=== PATIENT | male | born 1950 | race Caucasian/White ===

== ENCOUNTER 2016-06-28 15:43 | Inpatient (IN) ==
[2016-06-28] MEDS ORDERED: *HR* Ticagrelor 90 MG TABLET PO ONE (15:44)
[2016-06-28] MEDS ORDERED: *HR* Heparin 5,000 UNIT/ML VIAL IVP PRN ×2 (15:47)
[2016-06-28] MEDS ORDERED: *HR* Heparin 5,000 UNIT/ML VIAL IVP ONE (15:47)
[2016-06-28] MEDS ORDERED: *HR* Morphine 2 MG/ML SYRINGE IVP ONE (15:49)
--- NOTE | 2016-06-28 15:51 | Emergency Department Note ---
Disposition Clinical Impression: STEMI (ST elevation myocardial infarction) Disposition: Home, Self-Care Condition: Good General Adult HPI - General Chief complaint: ED Chest Pain Stated complaint: CP Time Seen by Provider: 06/28/16 15:44 Nursing Notes Reviewed: Yes Vital Signs Reviewed: Yes - Related Data Home Medications Medication Instructions Recorded Confirmed Amlodipine Besylate 10 mg PO DAILY 09/19/15 09/19/15 Ascorbic Acid [Vitamin C] 1,000 mg PO DAILY 09/19/15 09/19/15 Aspirin Enteric Coated [Aspirin EC] 81 mg PO DAILY 09/19/15 09/19/15 Cholecalciferol (D-3) [Vitamin D] 5,000 unit PO DAILY 09/19/15 09/19/15 Garlic [Daily Garlic Once-A-Day] 400 mg PO DAILY 09/19/15 09/19/15 GlipiZIDE [Glipizide] 10 mg PO DAILY 09/19/15 09/19/15 Lisinopril/Hydrochlorothiazide 1 tab PO DAILY 09/19/15 09/19/15 [Zestoretic 20-25 mg Tablet] Lovastatin 40 mg PO DAILY 09/19/15 09/19/15 Magnesium Oxide [Magnesium] 400 mg PO DAILY 09/19/15 09/19/15 Metformin HCl [Glucophage] 1,000 mg PO BID 09/19/15 09/19/15 Multivitamin [Multi-Day Vitamins] 1 tab PO DAILY 09/19/15 09/19/15 [place]-3/Dha/Epa/Fish Oil [Fish Oil 1,000 mg PO DAILY 09/19/15 09/19/15 1,000 mg Softgel] Potassium 99 mg PO DAILY 09/19/15 09/19/15 Allergies Allergy/AdvReac Type Severity Reaction Status Date / Time ibuprofen AdvReac See Verified 09/19/15 12:24 Comments Past Medical History - Past Medical History Medical history: Reports: cancer, diabetes, hyperlipidemia, hypertension, other Surgical history: Reports: other Psychiatric history: Reports: no psych history - Social History Smoking Status: Never smoker Alcohol use: Reports: recent Drug use: Reports: none Course Vital Signs Temperature 98.5 F 06/28/16 15:45 Pulse Rate 104 06/28/16 15:45 Respiratory Rate 22 06/28/16 15:45 Blood Pressure 142/87 06/28/16 15:45 O2 Sat by Pulse Oximetry 96 06/28/16 15:45 Temperature 98.5 F 06/28/16 15:45 Pulse Rate 104 06/28/16 15:45 Respiratory Rate 22 06/28/16 15:45 Blood Pressure 142/87 06/28/16 15:45 O2 Sat by Pulse Oximetry 96 06/28/16 15:45 Oxygen Delivery Oxygen Delivery Room Air Medical Decision Making - MDM Narrative Medical decision making narrative: I examined this patient and my medical decision-making was reviewed with the [employer]/PA/Advanced Practice Nurse/Resident Physician. I agree with the documented findings, disposition and treatment plan as described except to the extent set forth below. Patient started having chest pain about an hour to prior. Pain was going to her shoulder his arm. He was going to [place] [facility] and they diverted him to here. He did get 34 nitros and a baby aspirin for total 325 mg in the squad. Pain has declined down to about a 2. His initial pre- squad EKG does show a STEMI. There is pain is improving but still there repeat EKG shows a STEMI called him as a STEMI alert. Dr. Adkins he is accepting. As for heparin and Galien type. And patient's agreement will go to [employer] [facility]. 1600 hrs.: Patient's following medication well. He is a negative catheter lab. Waiting on Keflex arrival. His critical care time exceeds separately billed procedures is 20 minutes. - Lab Data Result diagrams: 06/28/16 15:47 Lab Results 06/28/16 Range/Units 15:47 WBC 8.8 (4.3-11.1) K/mcL RBC 4.30 (4.19-5.50) M/mcL Hgb 13.5 (12.9-16.9) g/dL Hct 40.2 (37.5-50.1) % MCV 93.5 (83.0-100.0) fL MCH 31.4 (28.0-33.3) pg MCHC 33.6 (31.6-35.5) g/dL RDW 13.8 (11.5-14.5) % Plt Count 254 (140-400) K/mcL MPV 9.9 (9.4-12.4) fL Immature Gran % 0.3 (0-4) % Seg Neutrophils % 66.6 % Lymphocytes % 22.1 % Monocytes % 7.5 % Eosinophils % 2.6 % Basophils % 0.9 % Neutrophils # 5.8 (1.6-8.9) K/mcL Lymphocytes # 1.9 (0.6-4.6) K/mcL Monocytes # 0.7 (0.0-1.3) K/mcL Eosinophils # 0.2 (0.0-0.6) K/mcL Basophils # 0.1 (0.0-0.2) K/mcL
--- NOTE | 2016-06-28 15:52 | Emergency Department Note ---
Disposition Clinical Impression: STEMI (ST elevation myocardial infarction) Qualifiers: Involved coronary artery: unspecified coronary artery Qualified Code(s): I21.3 - ST elevation (STEMI) myocardial infarction of unspecified site Disposition: Admitted As Inpatient Condition: Good Time of Disposition: 15:59 Chest Pain HPI - General Chief Complaint: ED Chest Pain Stated Complaint: CP Time Seen by Provider: 06/28/16 15:44 Source: patient, EMS Mode of arrival: EMS Limitations: no limitations Vital Signs Reviewed: Yes Nursing Notes Reviewed: Yes - History of Present Illness HPI Narrative: Patient is a 66-year-old male with past history of hypertension, hyperlipidemia , prediabetic. He presents today via EMS due to chest pain/STEMI. Patient was diverted from [place] [facility] to [facility]. EKG sent prior to arrival showing ST elevation in V1, V2, V3 with reciprocal changes. STEMI alert was called prior to patient presenting. He was given aspirin 325 mg and 4 nitroglycerin by EMS. Patient said the chest pain began about an hour prior to arrival, left-sided, radiation down his left arm, sweating, episode of nausea and vomiting 2. He denies any previous NM or stenting. He reviewed his initial pain 5 out of 10 and stated that it reduced to a 4 out of 10 after nitroglycerin. - Related Data Home Medications Medication Instructions Recorded Confirmed Amlodipine Besylate 10 mg PO DAILY 09/19/15 06/28/16 Ascorbic Acid [Vitamin C] 1,000 mg PO DAILY 09/19/15 06/28/16 Aspirin Enteric Coated [Aspirin EC] 81 mg PO DAILY 09/19/15 06/28/16 Cholecalciferol (D-3) [Vitamin D] 5,000 unit PO DAILY 09/19/15 06/28/16 Garlic [Daily Garlic Once-A-Day] 400 mg PO DAILY 09/19/15 06/28/16 GlipiZIDE [Glipizide] 10 mg PO DAILY 09/19/15 06/28/16 Lisinopril/Hydrochlorothiazide 1 tab PO DAILY 09/19/15 06/28/16 [Zestoretic 20-25 mg Tablet] Lovastatin 40 mg PO DAILY 09/19/15 06/28/16 Magnesium Oxide [Magnesium] 400 mg PO DAILY 09/19/15 06/28/16 Metformin HCl [Glucophage] 1,000 mg PO BID 09/19/15 06/28/16 Multivitamin [Multi-Day Vitamins] 1 tab PO DAILY 09/19/15 06/28/16 [place]-3/Dha/Epa/Fish Oil [Fish Oil 1,000 mg PO DAILY 09/19/15 06/28/16 1,000 mg Softgel] Potassium 99 mg PO DAILY 09/19/15 06/28/16 Allergies Allergy/AdvReac Type Severity Reaction Status Date / Time ibuprofen AdvReac See Verified 09/19/15 12:24 Comments All systems ED: reviewed and negative except as stated. Constitutional: Denies: fever Cardiovascular: Reports: chest pain. Denies: palpitations Respiratory: Denies: cough, dyspnea, wheezes Gastrointestinal: Reports: nausea, vomiting. Denies: abdominal pain, diarrhea Musculoskeletal: Denies: back pain Integumentary: Denies: rash Chest Pain PMH - Past Medical History Medical history: Reports: cancer, diabetes, hyperlipidemia, hypertension, other Surgical history: Reports: other Psychiatric history: Reports: no psych history - Social History Smoking Status: Never smoker Alcohol use: Reports: recent Drug use: Reports: none Physical Exam - General Limitations: no limitations General appearance: in distress, other (Sweating, breathing heavy on exam) - Head Head exam: atraumatic, normocephalic, normal inspection - ENT ENT exam: normal exam, normal oropharynx, mucous membranes moist - Neck Neck exam: Present: normal inspection, full ROM, trachea midline - Chest Chest inspection: Present: normal inspection, symmetric chest wall rise - Respiratory Respiratory exam: Present: normal lung sounds bilaterally - Cardiovascular Cardiovascular exam: Present: normal rhythm, tachycardia, normal heart sounds - Abdominal Exam Abdominal exam: Present: soft, Non-Tender. Absent: tenderness, distention, guarding, rebound, rigidity - Extremities Exam Extremities exam: Present: normal inspection, full ROM. Absent: tenderness, pedal edema - Neurological Exam Neurological exam: Present: alert, oriented X3 - Psychiatric Psychiatric exam: Present: normal affect, normal mood - Skin Skin exam: Present: warm, dry, intact, normal color Course Course Narrative: Patient was tachycardic and mildly hypertensive on presentation. STEMI alert was called prior to the patient arriving, lab courier called. Repeat EKG shows NSR with ST elevation in V1, V2, V3 with reciprocal changes in 2, 3, aVF. Dr. Givens spoke with Dr. Adkins who requested brilinta, heparin; these meds given. Patient already received 325mg aspirin and 4 nitro. Will give him 4mg of morphine due to continued pain 4/10 on left side of chest. Cardiac labs and CXR ordered. Vital Signs Temperature 98.5 F 06/28/16 15:45 Pulse Rate 104 06/28/16 15:45 Respiratory Rate 22 06/28/16 15:45 Blood Pressure 142/87 06/28/16 15:45 O2 Sat by Pulse Oximetry 96 06/28/16 15:45 Temperature 98.5 F 06/28/16 15:45 Pulse Rate 99 06/28/16 16:05 Respiratory Rate 20 06/28/16 16:10 Blood Pressure 0/0 06/28/16 16:10 O2 Sat by Pulse Oximetry 95 06/28/16 16:05 Oxygen Delivery Oxygen Delivery Nasal Cannula Chest Pain - MDM Narrative Medical decision making narrative: Patient was tachycardic and mildly hypertensive on presentation. STEMI alert was called prior to the patient arriving, lab courier called. Repeat EKG shows NSR with ST elevation in V1, V2, V3 with reciprocal changes in 2, 3, aVF. Dr. Givens spoke with Dr. Adkins who requested brilinta, heparin. Patient already received 325mg aspirin and 4 nitro. Will give him 4mg of morphine due to continued pain 4/10 on left side of chest. - Medical Records Medical records reviewed: Yes I reviewed the patient's medical records. - Lab Data Result diagrams: 06/28/16 15:47 06/28/16 15:47 Lab Results 06/28/16 06/28/16 06/28/16 Range/Units 15:47 15:47 15:47 WBC 8.8 (4.3-11.1) K/mcL RBC 4.30 (4.19-5.50) M/mcL Hgb 13.5 (12.9-16.9) g/dL Hct 40.2 (37.5-50.1) % MCV 93.5 (83.0-100.0) fL MCH 31.4 (28.0-33.3) pg MCHC 33.6 (31.6-35.5) g/dL RDW 13.8 (11.5-14.5) % Plt Count 254 (140-400) K/mcL MPV 9.9 (9.4-12.4) fL Immature Gran % 0.3 (0-4) % Seg Neutrophils % 66.6 % Lymphocytes % 22.1 % Monocytes % 7.5 % Eosinophils % 2.6 % Basophils % 0.9 % Neutrophils # 5.8 (1.6-8.9) K/mcL Lymphocytes # 1.9 (0.6-4.6) K/mcL Monocytes # 0.7 (0.0-1.3) K/mcL Eosinophils # 0.2 (0.0-0.6) K/mcL Basophils # 0.1 (0.0-0.2) K/mcL PT 11.0 (9.4-12.1) Seconds INR 1.0 APTT 26.2 (26.0-36.0) Seconds Sodium 141 (136-145) mEq/L Potassium 4.2 (3.5-4.5) mEq/L Chloride 107 (98-109) mEq/L Carbon Dioxide 24 (19-29) mEq/L BUN 15 (8-26) mg/dL Creatinine 1.27 H (0.72-1.25) mg/dL Est GFR ( Amer) > 60 (> 60) Est GFR (Non-Af Amer) 57 L (> 60) BUN/Creatinine Ratio 12 (6-26) Glucose 149 H (70-99) mg/dL Calculated Osmolality 296 (280-300) Calcium 8.9 (8.6-10.8) mg/dL Magnesium 1.5 L (1.6-2.6) mg/dL Troponin I (0-0.03) ng/mL 06/28/16 Range/Units 15:47 WBC (4.3-11.1) K/mcL RBC (4.19-5.50) M/mcL Hgb (12.9-16.9) g/dL Hct (37.5-50.1) % MCV (83.0-100.0) fL MCH (28.0-33.3) pg MCHC (31.6-35.5) g/dL RDW (11.5-14.5) % Plt Count (140-400) K/mcL MPV (9.4-12.4) fL Immature Gran % (0-4) % Seg Neutrophils % % Lymphocytes % % Monocytes % % Eosinophils % % Basophils % % Neutrophils # (1.6-8.9) K/mcL Lymphocytes # (0.6-4.6) K/mcL Monocytes # (0.0-1.3) K/mcL Eosinophils # (0.0-0.6) K/mcL Basophils # (0.0-0.2) K/mcL PT (9.4-12.1) Seconds INR APTT (26.0-36.0) Seconds Sodium (136-145) mEq/L Potassium (3.5-4.5) mEq/L Chloride (98-109) mEq/L Carbon Dioxide (19-29) mEq/L BUN (8-26) mg/dL Creatinine (0.72-1.25) mg/dL Est GFR ( Amer) (> 60) Est GFR (Non-Af Amer) (> 60) BUN/Creatinine Ratio (6-26) Glucose (70-99) mg/dL Calculated Osmolality (280-300) Calcium (8.6-10.8) mg/dL Magnesium (1.6-2.6) mg/dL Troponin I 0.13 H* (0-0.03) ng/mL - Radiology Data Radiology results reviewed: Yes I reviewed the patient's radiology results. - EKG Data EKG attestation: Yes I reviewed and interpreted this EKG. EKG results narrative: 06/28/2016 at 15:46. Sinus tachycardia. Rate 106. [place] interval 124. Urine is 132. QTC 404. Left axis deviation. ST elevation in V1, V2, V3. Reciprocal changes in leads 2, 3, aVF. STEMI.
[2016-06-28] MEDS ORDERED: Verapamil 5 MG/2 ML VIAL ONE (15:53)
[2016-06-28] MEDS ORDERED: Heparin 1,000 UNITS/500 mL NS 500 ML ONE (15:54)
[2016-06-28] MEDS ORDERED: Nitroglycerin 1,000 MCG/10 ML VIAL IV ONE (15:54)
[2016-06-28] MEDS ORDERED: *HR* Heparin 10,000 UNIT/10 ML VIAL ONE (15:54)
[2016-06-28] MEDS ORDERED: 0.9 % Sodium Chloride 1,000 ML ONE (15:54)
[2016-06-28 15:55] LABS: Basophils # 0.1 K/mcL (0.0-0.2); Basophils % 0.9 %; Eosinophils # 0.2 K/mcL (0.0-0.6); Eosinophils % 2.6 %; Hematocrit 40.2 % (37.5-50.1); Hemoglobin 13.5 g/dL (12.9-16.9); Immature Granulocytes % 0.3 % (0-4); Lymphocytes # 1.9 K/mcL (0.6-4.6); Lymphocytes % 22.1 %; Mean Corpuscular HGB Conc 33.6 g/dL (31.6-35.5); Mean Corpuscular Hemoglobin 31.4 pg (28.0-33.3); Mean Corpuscular Volume 93.5 fL (83.0-100.0); Mean Platelet Volume 9.9 fL (9.4-12.4); Monocytes # 0.7 K/mcL (0.0-1.3); Monocytes % 7.5 %; Neutrophils # 5.8 K/mcL (1.6-8.9); Platelet Count 254 K/mcL (140-400); Red Cell Distribution Width 13.8 % (11.5-14.5); Segmented Neutrophils % 66.6 %
[2016-06-28] MEDS ORDERED: Heparin 25,000 UNIT/500 ML D5W 25,000 UNIT/500 ML MLS IVC SCH (16:00)
[2016-06-28 16:03] LABS: Activated Partial Thrombo Time 26.2 Seconds (26.0-36.0)
[2016-06-28] MEDS ORDERED: *HR* FentaNYL (PF) 250 MCG/5 ML VIAL ONE (16:05)
[2016-06-28] MEDS ORDERED: *HR* Midazolam HCl 5 MG/5 ML VIAL IVP ONE (16:05)
[2016-06-28 16:08] LABS: BUN/Creatinine Ratio 12 (6-26); Blood Urea Nitrogen 15 mg/dL (8-26); Calcium 8.9 mg/dL (8.6-10.8); Carbon Dioxide 24 mEq/L (19-29); Chloride 107 mEq/L (98-109); Glucose 149 mg/dL (70-99); Magnesium 1.5 mg/dL (1.6-2.6); Osmolality,Calculated 296 (280-300); Potassium 4.2 mEq/L (3.5-4.5); Sodium 141 mEq/L (136-145); eGFR For African Americans > 60 (> 60); eGFR For Non-African Americans 57 (> 60)
[2016-06-28] MEDS ORDERED: *HR* Morphine 2 MG/ML SYRINGE IVP PRN (16:19)
[2016-06-28] MEDS ORDERED: Ondansetron 4 MG/2 ML VIAL IVP PRN (16:19)
--- NOTE | 2016-06-28 16:21 | Pre-Sedation Evaluation ---
Pre-sedation evaluation - Pre-sedation checklist Date of procedure: 06/28/16 Procedure: [facility] Recent Vitals: Last Vital Signs Temp 98.5 F 06/28/16 15:45 Pulse 99 06/28/16 16:05 Resp 20 06/28/16 16:10 BP 0/0 06/28/16 16:10 Pulse Ox 95 06/28/16 16:05 H&P (including ROS) documented in medical record: Yes Previous reaction to sedatives/anesthetics: No Dietary Status: NPO after Midnight Dentition: No loose teeth or bridges ASA Classification *see protocol: CLASS II-Mild systemic disease, E-EMERGENCY- Add to any of the above to indicate emergent Plan of Care: Pt appropriate candidate for procedure/moderate/conscious sedation , Risks/benefits of procedure/sedation discussed w/ patient/family
[2016-06-28] MEDS ORDERED: Tirofiban 5 MG/100ML 5 MG/100 ML BAG IV ONE (16:44)
[2016-06-28] MEDS ORDERED: Dextrose Gel 15 GM PO PRN ×2 (17:10)
[2016-06-28] MEDS ORDERED: D5% in Water 1,000 ML IVC PRN (17:10)
[2016-06-28] MEDS ORDERED: *HR* Dextrose 50 % in Water (Syg) 50 ML SYRINGE IVP PRN (17:10)
--- NOTE | 2016-06-28 17:12 | Cardiology History & Physical ---
Date of Encounter: 07/01/16 Time of Encounter: 17:00 Assessment and Plan (1) STEMI (ST elevation myocardial infarction) Current Visit: Yes Status: Acute Emergent LHC. Aspirin, Brilinta, statin, heparin given. EF assessment will be completed. The assessment and plan as outlined above was discussed with the patient and/or family members who expressed understanding and agreement. All questions were answered. Qualifiers: Involved coronary artery: LAD coronary artery Qualified Code(s): I21.02 - ST elevation (STEMI) myocardial infarction involving left anterior descending coronary artery (2) Essential hypertension Current Visit: Yes Status: Chronic Titrate medications. The assessment and plan as outlined above was discussed with the patient and/or family members who expressed understanding and agreement. All questions were answered. (3) DMII (diabetes mellitus, type 2) Current Visit: Yes Status: Chronic SSI QID FSThe assessment and plan as outlined above was discussed with the patient and/or family members who expressed understanding and agreement. All questions were answered. Qualifiers: Diabetes mellitus complication status: with unspecified complications Diabetes mellitus jail insulin use: unspecified jail insulin use status Qualified Code(s): E11.8 - Type 2 diabetes mellitus with unspecified complications History of Present Illness Chief complaint: chest pressure HPI: Mr. Robertson is a 66 year old male with HTN DM no previous cardiac history on aspirin presents with chest pressure while outside in yard ~1430 that did not dissipate with ntg/aspirin in EMS. EKG shows anterior current of injury and emergently taken to [facility]. Past Med Surg Social Fam HX - Past Medical History Medical history: cancer, diabetes, hyperlipidemia, hypertension, other Psychiatric history: no psych history - Past Surgical History Surgical History: other - Social History Smoking Status: Never smoker Smokeless Tobacco Status: No Alcohol use: recent Drug use: none Medications and Allergies Amlodipine Besylate 10 mg PO DAILY 09/19/15 [History] Ascorbic Acid [Vitamin C] 1,000 mg PO DAILY 09/19/15 [History] Aspirin Enteric Coated [Aspirin EC] 81 mg PO DAILY 09/19/15 [History] Cholecalciferol (D-3) [Vitamin D] 5,000 unit PO DAILY 09/19/15 [History] Garlic [Daily Garlic Once-A-Day] 400 mg PO DAILY 09/19/15 [History] GlipiZIDE [Glipizide] 10 mg PO DAILY 09/19/15 [History] Lisinopril/Hydrochlorothiazide [Zestoretic 20-25 mg Tablet] 1 tab PO DAILY 09/18 [History] Lovastatin 40 mg PO DAILY 09/19/15 [History] Magnesium Oxide [Magnesium] 400 mg PO DAILY 09/19/15 [History] Metformin HCl [Glucophage] 1,000 mg PO BID 09/19/15 [History] Multivitamin [Multi-Day Vitamins] 1 tab PO DAILY 09/19/15 [History] [place]-3/Dha/Epa/Fish Oil [Fish Oil 1,000 mg Softgel] 1,000 mg PO DAILY 09/19/15 [History] Potassium 99 mg PO DAILY 09/19/15 [History] Allergies ibuprofen Adverse Reaction (Verified 09/19/15 12:24) See Comments skin crawls All Systems Review: A 10-system review of systems was performed and is negative for pertinent findings except as documented above in the HPI. - Constitutional Constitutional: no chills, no fever(s) - EENT Eyes: no blurred vision, no loss of vision Nose, mouth and throat: no bleeding gums, no epistaxis - Cardiovascular Cardiovascular: no irregular heart rhythm, no syncope - Respiratory Respiratory: no hemoptysis, no wheezing - Gastrointestinal Gastrointestinal: no hematemesis, no hematochezia - Genitourinary Genitourinary: no hematuria, no nocturia - Musculoskeletal Musculoskeletal: no arthralgias, no myalgias - Integumentary Integumentary: no erythema, no rash - Neurological Neurological: no abnormal speech, no dizziness - Psychiatric Psychiatric: no anxiety, no depression - Hematological/Lymphatic Hematologic/Lymphatic: no easy bleeding, no easy bruising Physical Examination Vital Signs, Last 4 Hours Pulse Resp BP Pulse Ox 06/28/16 16:10 20 0/0 06/28/16 16:05 99 18 149/85 95 General: Conversant HEENT: Atraumatic Neck: No JVD Cardiac: Reg Rate and Rhythm Lungs: Normal Breath Sounds Neuro: Alert and responsive Abdomen: Soft Skin: No rashes noted on visualized skin Musculoskeletal: No Chest Wall Tenderness Extremities: No Clubbing Results 06/29/16 02:36 06/30/16 02:49 - EKG Interpretation EKG results cardiology: sinus rhythm (anterior current of injury)
[2016-06-28] MEDS ORDERED: Tirofiban 12.5 MG/250ML 12.5 MG/250 ML BAG IVC SCH (17:15)
--- NOTE | 2016-06-28 17:18 | Invasive Diagnostic Lab Proc ---
Name: Enio Robertson Date of Study: 06/28/2016 Date: 1950 Ht: 68.9in Medical Record#: [id number] Age: 66 Wt: 249.12lb Gender: Male BSA: 2.27 Order #: [id number] BMI: 36.9 Physicians Procedure Physician: Bacilio Adkins MD, [facility] Referring MD: Joseluis Robbins, MORGAN Referring MD: Staff Name Position Time In Kemar Pollard RN Monitor 04:21 PM Sadie Sousa RT (R) Scrub 04:21 PM Mackenzie Robledo RN Hot Kettle Tender 04:22 PM Indications Indication STEMI Procedures Performed Procedure L HRT ARTERY/VENTRICLE ANGIO PRQ CARD REVASC MN 1 VSL Pre-Procedure Checklist Informed consent is complete signed and on chart. H\\T\\P is on chart. ID band is on and ID verified with patient. Pt not NPO for procedure and MD aware. The procedure was described for the patient and questions were answered. Blood Pressure: 142/87 ECG is on chart. Rhythm: Sinus Tachycardia Plan of Care Patient will tolerate the procedure without complications. Adequate level of comfort will be maintained. Hemodynamics will remain stable Patient will recover from procedure without complications. Respiratory function will be maintained. Cardiac rhythm will remain stable. Patient temperature will be maintained. Patient and/or family have verbalized understanding of the procedure. Patient Education Intravenous Access Time IV Size Location DC'd Fluid/Drip Rate Units RN 04:20 PM 18g 1 1/4" Patent On Arrival Lt Antecubital 0.9NaCl 25 ml/hr Mackenzie Robledo RN 04:20 PM 18g 1 1/4" Patent On Arrival Rt Antecubital Allergies ibuprofen Vital Signs Time BP (mmHg) HR (bpm) O2 Sat. RR (bpm) LOC 04:00 PM 142 / 87 104 96 % 22 5 = Fully awake and oriented or at pre-proc level 04:22 PM / % 5 = Fully awake and oriented or at pre-proc level 04:22 PM / % 3 = Answers simple questions/follows commands 04:38 PM / % 4 = Oriented but drowsy 04:25 PM 138 / 82 91 97 % 20 04:30 PM 114 / 67 89 99 % 11 04:35 PM 128 / 72 98 95 % 25 04:40 PM 122 / 72 96 98 % 13 04:45 PM 133 / 69 96 97 % 22 04:50 PM 129 / 83 98 99 % 15 04:55 PM 97 / 60 86 99 % 11 04:56 PM 106 / 58 86 99 % 13 05:00 PM 107 / 66 88 100 % 14 04:20 PM 142 / 87 93 100 % 16 04:53 PM / % 4 = Oriented but drowsy Procedural Medications Time Medication Dose Units Method Given By 04:22 PM Oxygen 2 L/min nasal cannula Mackenzie Robledo RN 04:22 PM Versed 2 mg Intravenous Mackenzie Robledo RN 04:22 PM Fentanyl 50 mcg Intravenous Mackenzie Robledo RN 04:25 PM Lidocaine 2% 1 ml Subcutaneous Bacilio Adkins MD, FAC 04:27 PM Heparin 0 units Nitroglycerin 200 mcg Verapamil 2.5 mg Intraarterial Bacilio Adkins MD, FAC 04:45 PM Aggrastat Bolus: 58 ml Intravenous Mackenzie Rboledo RN 04:48 PM Aggrastat 5mg/100ml 21 ml/hr Intravenous Mackenzie Robledo RN 04:54 PM Nitroglycerin 200 mcg Intracoronary Bacilio Adkins MD 04:58 PM Nitroglycerin 100 mcg Intracoronary Bacilio Adkins MD ASA Classification: CLASS II- Mild systemic disease (i.e. well-controlled diabetes, hypertension, asthma, cigarette smoking) Emergent Procedure: ASA score is assumed Kathie Score Preprocedure Postprocedure Activity 2- Moves 4 extremities sustained head lift Activity 2- Moves 4 extremities sustained head lift Circulation 2- SBP +/= 20 points of pre-anesthetic level Circulation 2- SBP +/= 20 points of pre-anesthetic level Consciousness 2- Awake and alert oriented x 3 Consciousness 2- Awake and alert oriented x 3 O2 Saturation 2- Able to maintain O2 satruation of 92% on room air O2 Saturation 2- Able to maintain O2 satruation of 92% on room air Respiratory 2- Able to deep breathe and cough well Respiratory 2- Able to deep breathe and cough well Total Score 10 Total Score 10 Contrast Agent: Isovue Diagnostic Contrast: 173 ml Total Contrast: 173 ml Fluoro Dose: 1164 mGy Activated Clotting Time Time Seconds to Clot 04:50 PM 400 Procedure Log Time Note Enter By 03:58 PM CathStat 04:19 PM Vitals capture started with the following parameters, Patient=Adult, Interval=5 min, Initial Quizbyku=809 mmHg, Deflation Rate=5 mmHg, Cuff placed on Left Arm 04:20 PM HR=93 bpm, FSCZ=134/87 mmhg, ExQ8=921.0 %, Resp=16 B/min, Comment=sr w/PVCs 04:21 PM Pt arrived to label tacker 2 at 16:16 csmith 04:21 PM Kemar Pollard RN Position: Monitor Time in: 16:21 csmith 04:22 PM Sadie Sousa RT (R) Position: Scrub Time in: 16: csmith 04:22 PM Mackenzie Robledo RN Position: Hot Kettle Tender Time in: 16: csmith 04:22 PM Patient charges- Angio tray pack, Navilyst 3mm J, Pulse Oximetry and ACIST tubing and transducer csmith 04: PM Hair removed from procedure site in emergency department using clippers. Right wrist and right groin prepped with Chloraprep by Sadie Sousa RT (R), safety strap applied then patient was draped. Skin intact. csmith 04: PM Physician arrived 16: csmith 04: PM ASA Class CLASS II- Mild systemic disease (i.e. well-controlled diabetes, hypertension, asthma, cigarette smoking) csmith 04: PM Meet and greet completed csmith 04: PM Procedure start 16:22 csmith 04: PM Case Start 04: PM Time: 16:22 Oxygen on at 2 L/min per nasal cannula by Mackenzie Robledo RN csmith 04: PM Time: 16:22 Versed 2 mg Intravenous Given by Mackenzie Robledo RN csmith 04: PM Time: 16:22 Fentanyl 50 mcg Intravenous Given by [facility]: PM Time: 16:22 Patient comfortable and pain free: Yes csmith 04:22 PM Time: 16:22LOC: 5 = Fully awake and oriented or at pre-proc level csmith 04:23 PM Recorded ECG: HR=92 Condition=Condition 1 04:24 PM Pressure channel 1 zeroed. 04:25 PM Time out performed according to hospital policy csmith 04:25 PM HR=91 bpm, RNQZ=185/82 mmhg, SpO2=97.0 %, Resp=20 B/min, Comment=sr w/PVCs 04:26 PM Time: 16:25 1 ml Lidocaine 2% to right radial Subcutaneous Given by Bacilio Adkins MD, FACC csmith 04:27 PM Access obtained by percutaneous puncture. 5/6Fr 11cm Terumo Glidesheath sheath placed in right Radial artery. [id number] csmith 04:27 PM Time: 16:27 Patient given 0 units Heparin, 200 mcg Nitroglycerin, and 2.5 mg Verapamil Intraarterial by Bacilio Adkins MD, [facility] csmith 04:27 PM 6Fr RBL 3.5 Convey guide catheter was used to cannulate the PCI vessel successfully. reused? No csmith 04:27 PM 0.035 260cm Navilyst 3mmJ wire [id number] csmith 04:27 PM wire removed csmith 04:28 PM 0.035 150cm VSI Lazaro-Torque wire [id number] csmith 04:29 PM Recorded Pressure: Ao, HR=82, Condition=Condition 1 (Aorta) Ao 100/46/63 04:30 PM LCA angiography performed in multiple views. csmith 04:30 PM HR=89 bpm, OVZA=133/67 mmhg, SpO2=99.0 %, Resp=11 B/min, Comment=sr w/PVCs 04:30 PM .014 PT Graphix 182cm guide wire across target lesion- successful. reused? No csmith 04:31 PM 2.5 mm x 20 mm Emerge Monorail balloon across target lesion- successful. reused? No csmith 04:31 PM PCI lesion in Mid LAD. Pre Stenosis: 99 Pre ELSIE Flow: 3: Complete and Brisk Flow/Perfusion csmith 04:33 PM balloon removed and wire removed for reshaping and then reinserted csmith 04:35 PM HR=98 bpm, DGZX=786/72 mmhg, SpO2=95.0 %, Resp=25 B/min, Comment=sr w/PVCs 04:37 PM wire removed for reshaping and then reinserted csmith 04:37 PM Time: 16:22 Patient comfortable and pain free: Yes csmith 04:38 PM Time: 16:22LOC: 3 = Answers simple questions/follows commands csmith 04:40 PM HR=96 bpm, AUKO=562/72 mmhg, SpO2=98.0 %, Resp=13 B/min, Comment=sr w/PVCs 04:41 PM balloon reinsrted into mid LAD csmith 04:41 PM Balloon inflated @ 14 alessio for 12 seconds csmith 04:44 PM Balloon catheter removed intact. csmith 04:44 PM 3.0mm x 38mm Synergy bioabsorbable stent across target lesion- successful Lot #[id number] csmith 04:44 PM Recorded Pressure: Ao, OQ=562, Condition=Condition 1 (Aorta) Ao 112/68/88 04:45 PM HR=96 bpm, RYYT=159/69 mmhg, SpO2=97.0 %, Resp=22 B/min, Comment=sr w/PVCs 04:45 PM Stent deployed @ 12 alessio for 18 seconds csmith 04:48 PM Stent delivery system removed intact. csmith 04:48 PM Time: 16:45 Aggrastat Bolus: 58 ml Intravenous Given by Mackenzie Robledo RN Knowles pump csmith 04:48 PM 3.0 mm x 25mm NC Trek Rx balloon across target lesion- successful. reused? No csmith 04:48 PM Balloon inflated @ 18 alessio for 12 seconds csmith 04:49 PM Time: 16:48 Aggrastat 5mg/100ml 21 ml/hr Intravenous Given by Mackenzie Robledo RN Knowles pump csmith 04:50 PM HR=98 bpm, FHHO=685/83 mmhg, SpO2=99.0 %, Resp=15 B/min, Comment=sr w/PVCs 04:50 PM Balloon catheter removed intact. csmith 04:50 PM 3.0 mm x 8mm NC Trek Rx balloon across target lesion- successful. reused? No csmith 04:51 PM Balloon inflated @ 16 alessio for 13 seconds csmith 04:52 PM Balloon inflated @ 18 alessio for 10 seconds csmith 04:52 PM Balloon inflated @ 18 alessio for 7 seconds csmith 04:52 PM Balloon inflated @ 18 alessio for 8 seconds csmith 04:52 PM Balloon inflated @ 18 alessio for 9 seconds csmith 04:53 PM Time: 16:38LOC: 4 = Oriented but drowsy csmith 04:53 PM Time: 16:37 Patient comfortable and pain free: Yes csmith 04:54 PM At 16:50 the ACT was 400 seconds. csmith 04:54 PM Time: 16:54 Nitroglycerin 200 mcg Intracoronary Given by Bacilio Adkins MD csmith 04:54 PM balloon and wire removed csmith 04:55 PM HR=86 bpm, NIBP=97/60 mmhg, SpO2=99.0 %, Resp=11 B/min, Comment=sr w/PVCs 04:55 PM NIBP STAT measurement started. 04:55 PM catheter removed csmith 04:55 PM 5Fr FR 4 catheter inserted over the wire DN csmith 04:56 PM Lesion found in Proximal LAD. Pre Stenosis: 50 Pre ELSIE Flow: 3: Complete and Brisk Flow/Perfusion csmith 04:56 PM HR=86 bpm, NAOR=249/58 mmhg, SpO2=99.0 %, Resp=13 B/min, Comment=sr w/PVCs 04:57 PM RCA angiography performed in multiple views. csmith 04:57 PM Coronary Dominance: right csmith 04:58 PM Time: 16:58 Nitroglycerin 100 mcg Intracoronary Given by Bacilio Adkins MD csmith 04:59 PM Lesion found in Proximal RCA (ostial). Pre Stenosis: 50 Pre ELSIE Flow: 3: Complete and Brisk Flow/Perfusion csmith 05:00 PM Lesion found in Mid RCA. Pre Stenosis: 40 Pre ELSIE Flow: 3: Complete and Brisk Flow/Perfusion csmith 05:00 PM HR=88 bpm, FMGP=395/66 mmhg, ZxO1=580.0 %, Resp=14 B/min, Comment=sr w/PVCs 05:00 PM Pressure channel 1 zero failed. 05:00 PM Pressure channel 1 zero failed. 05:00 PM Pressure channel 1 zeroed. 05:01 PM Recorded Pressure: LV, HR=88, Condition=Condition 1 (Left Ventricle) LV 106/17/32 05:01 PM Recorded Pressure: LV, Ao, HR=90, Condition=Condition 1 (Left Ventricle) LV 111/19/37, (Aorta) Ao 100/64/82 05:02 PM catheter removed csmith 05:02 PM 5Fr Pigtail catheter inserted over the wire [facility] csmith 05:02 PM Catheter selectively placed in left ventricle csmith 05:02 PM Bolus angiogram of left Ventricle complete: 12 ml/sec for a total of 35 mls csmith 05:02 PM Catheter removed csmith 05:02 PM Wire removed csmith 05:04 PM Procedure completed at 17:04 csmith 05:04 PM Sign out completed: Radiation Dose 1164 mGy Fluoro Time: 12.9 Isovue 370 - 200ml contrast 173 ml given by Bacilio Adkins MD, [facility]. Complications: NoneCardiac Rehab Consult needed: YesConfirmed administered medications: Yes csmith 05:05 PM Isovue 370 - 200ml,1 Bottle(s) used. csmith 05:05 PM Arterial sheath pulled, Vasc Band closure device used and was Successful S/N. csmith 05:05 PM 8 ml air in Vasc Band. csmith 05:05 PM Post ECG NSR csmith 05:05 PM Post Blood Pressure 119/73 csmith 05:05 PM 17:05 Post Pulses Right radial 1+ csmith 05:05 PM Information taught Vasc Band, PCI, and Cardiac Cath csmith 05:05 PM Education needs Responsibilities of Patient in Care csmith 05:05 PM Learning barriers :None csmith 05:05 PM Education Methods Verbal csmith 05:05 PM Education evaluation Able to repeat information [facility] 05:05 PM Site status No bleeding/hematoma - Rt Wrist as reported by Sadie Sousa RT (R) at 17:05 csmith 05:06 PM Plavix, Effient or Brilinta given No - given in ED csmith 05:06 PM Family placed in consult [facility]. [facility] 05:08 PM Time: 16:53 Patient comfortable and pain free: Yes csmith 05:08 PM Time: 16:53LOC: 4 = Oriented but drowsy csmith 05:13 PM Report given to enma DONAHUE Pt taken to ICU Room #9. 17:13 csmith 05:14 PM Patient [facility] of room: 17:14 [facility] Complications Complication None Hemodynamics Pressures Site Systolic/A Wave Diastolic/V Wave Mean AO 100 46 63 AO 112 68 88 LV 106 17 32 LV 111 19 37 AO 100 64 82 Post Procedure Information Blood Pressure: 119/73 mmHg Rhythm: NSR Post procedural instructions were given Closure Device Time Device Success/Fail Mechanical Compression Successful Site Checks Time Location Status Staff Sheath In? Note 05:05 PM Rt Wrist No bleeding/hematoma Sadie Sousa RT (R) Pulses Time Site Pre-Procedure Post-Procedure Note 06/28/2016 4:33:00 PM Right radial 2+ 5:05:00 PM Right radial 1+ Updated by Kemar Pollard RN on 06/28/2016 5:14:28 PM electronically signed on 06/28/2016 5:14:51 PM with status of Final
[2016-06-28] MEDS: *HR* Ticagrelor 90 MG TABLET PO SCH (20:57)
[2016-06-28] MEDS ORDERED: Insulin LISPRO 300 UNITS/3 ML VIAL SQ SCH (21:00)
[2016-06-29 02:43] LABS: Basophils # 0.1 K/mcL (0.0-0.2); Basophils % 0.7 %; Eosinophils # 0.1 K/mcL (0.0-0.6); Eosinophils % 0.6 %; Hematocrit 39.4 % (37.5-50.1); Immature Granulocytes % 0.3 % (0-4); Lymphocytes # 1.9 K/mcL (0.6-4.6); Lymphocytes % 17.5 %; Mean Corpuscular Hemoglobin 31.6 pg (28.0-33.3); Mean Corpuscular Volume 95.6 fL (83.0-100.0); Mean Platelet Volume 10.3 fL (9.4-12.4); Monocytes # 0.9 K/mcL (0.0-1.3); Monocytes % 8.5 %; Neutrophils # 7.7 K/mcL (1.6-8.9); Platelet Count 267 K/mcL (140-400); Red Blood Count 4.12 M/mcL (4.19-5.50); Red Cell Distribution Width 14.2 % (11.5-14.5); Segmented Neutrophils % 72.4 %
[2016-06-29 03:00] LABS: BUN/Creatinine Ratio 13 (6-26); Blood Urea Nitrogen 14 mg/dL (8-26); Calcium 8.4 mg/dL (8.6-10.8); Carbon Dioxide 22 mEq/L (19-29); Chloride 107 mEq/L (98-109); Glucose 167 mg/dL (70-99); Osmolality,Calculated 290 (280-300); Sodium 138 mEq/L (136-145); eGFR For African Americans > 60 (> 60); eGFR For Non-African Americans > 60 (> 60)
[2016-06-29] MEDS ORDERED: *HR* Heparin 5,000 UNIT/ML VIAL SQ SCH (07:30)
[2016-06-29] MEDS ORDERED: Insulin LISPRO 300 UNITS/3 ML VIAL SQ SCH (07:30)
--- NOTE | 2016-06-29 07:46 | Invasive Diagnostic Lab ---
Name: Enio Robertson Date of Study: 06/28/2016 Date: 1950 Ht: 175.0 cm /68.9 in Medical Record#: [id number] Age: 66 Wt: 113. kg / 249.12 lb Account/Order#: [id number] Gender: Male BSA: 2.27 Order #: [id number] Fluoro Dose: 1164 mGy BMI: 36.9 Procedure Physician: Bacilio Adkins MD, FACC Referring MD: Joseluis Robbins CNP Referring MD: Procedures Performed: LEFT HEART CATH PCI of Acute DE Indications: STEMI Impressions: There is severe one vessel coronary artery disease. Patient had successful PTCA/Drug-Eluting Stent placement in the mid LAD. LVEF 30% Recommendations: Optimal medical therapy of patient's disease. Aggressive risk factor modification. History/Risk Factors: HPTN Pre-diabetic Hyperlipidemia Prostate CA w/surgical intervention Family History of CAD Procedure Access obtained in the right Radial artery by percutaneous puncture Patient had successful PTCA/Drug-Eluting Stent placement in the mid LAD. Complications: None Contrast: Isovue 173ml Closure Device: Mechanical Compression Hemodynamics: Pressures Site Systolic/ A Wave Diastolic/ V Wave End Diastolic/ Mean HR AO 100 46 63 82 AO 112 68 88 100 LV 106 17 32 88 LV 111 19 37 89 AO 100 64 82 90 LV Ventriculography Ejection Method: LV Gram Ejection Fraction: 30% Wall Motion: FERNANDEZ Anterobasal Severe Hypokinesis Anterolateral Severe Hypokinesis Apical: Severe Hypokinesis Inferoapical Normal Inferobasal Normal Coronary Dominance: right Lesion Findings/Interventions * Left Main Coronary Artery The LMCA is angiographically free of disease. * Left Anterior Descending There is a 50% stenosis in the Proximal LAD. The lesion has a ELSIE flow of 3. There is a 35 mm long, 99% stenosis in the Mid LAD. The lesion has a ELSIE flow of 2 and has thrombus present. An intervention was performed on the Mid LAD with a final stenosis of 0%. There were no lesion complications. The final ELSIE flow was 3. * Circumflex The Circumflex is angiographically free of significant disease. The 1st Marginal is angiographically free of significant disease. * Right Coronary Artery There is a 50% stenosis in the Proximal RCA (ostial). The lesion has a ELSIE flow of 3. There is a 40% stenosis in the Mid RCA. The lesion has a ELSIE flow of 3. Interventional Device(s) Vessel Segment Type Name Diameter (mm) Length (mm) Mid LAD Drug Eluting Stent Synergy 3 38 Mid LAD Balloon NC Trek Rx 3 25 Mid LAD Balloon NC Trek Rx 3 8 Mid LAD Balloon Emerge Monorail 2.5 20 Updated by Kemar Pollard RN on 06/28/2016 5:13:53 PM Bacilio Adkins MD, FACC electronically signed on 06/29/2016 7:43:22 AM with status of Final
--- NOTE | 2016-06-29 08:00 | Cardiology Progress Note ---
Date of Encounter: 06/29/16 Time of Encounter: 07:20 Assessment and Plan (1) STEMI (ST elevation myocardial infarction) Current Visit: Yes Status: Acute Admitted on 06/28/16 with anterior STEMI, troponin 0.13 [facility] 06/28/16: severe 1v CAD s/p successful PTCA/DANIEL to mLAD 99% stenosis; otherwise mild-moderate non-obstructive CAD--50% pLAD; 50% ostial RCA, 40% mRCA ; EF 30%. TTE pending. He is chest pain free and euvolemic upon exam. Mild pre-tibial edema noted-- patient states this is chronic. Education provided on importance of uninterrupted DAPT (asa + brilinta) therapy. Change lopressor to coreg. Continue ACEi, statin. Plan to step down to 2N today, encouraged ambulation. Post PCI restrictions/instructions discussed. Vitals, telemetry stable. Heparin SC 5000 mg BID added for VTE prophylaxis. Anticipate discharge tomorrow if vitals, telemetry stable. Qualifiers: Involved coronary artery: LAD coronary artery Qualified Code(s): I21.02 - ST elevation (STEMI) myocardial infarction involving left anterior descending coronary artery (2) Essential hypertension Current Visit: Yes Status: Chronic Continue betablocker and ACEi. Controlled, adjust as necessary. (3) DMII (diabetes mellitus, type 2) Current Visit: Yes Status: Chronic Hold metformin x48 hours after LHC. Resume home Glipizide today. Continue to monitor. Qualifiers: Diabetes mellitus complication status: with unspecified complications Diabetes mellitus prison insulin use: without prison use Qualified Code( s): E11.8 - Type 2 diabetes mellitus with unspecified complications Discussion w patient/family: The assessment and plan as outlined above was discussed with the patient and/or family members who expressed understanding and agreement. All questions were answered. Thank you for involving us in the care of your patient. Please call with any questions. The patient will be discussed and reviewed with Dr. Adkins; changes to be made accordingly. Subjective Principal diagnosis: anterior STEMI Interval history: Seen and examined. Mr. Robertson admitted yesterday with anterior STEMI. Reports mid-sternal chest pressure has resolved this AM. Denies any other complaints overnight. Right radial cath site stable. mechanical maintenance technician at bedside to complete echocardiogram. Discussed findings of [facility] with patient and plan. Objective Vital Signs, Last 4 Hours Temp Pulse Resp BP Pulse Ox 06/29/16 07:28 98.2 F 06/29/16 06:00 55 18 128/82 98 06/29/16 05:00 56 18 137/85 98 06/29/16 04:25 54 General: Conversant HEENT: Atraumatic, Normocephaly Cardiac: Reg Rate and Rhythm, Normal S1 and S2 Lungs: Normal Breath Sounds Neuro: Alert and responsive Abdomen: Soft Skin: No rashes noted on visualized skin Musculoskeletal: No Chest Wall Tenderness Extremities: No Edema, Other (mild BLE (pre-tibial edema)) Other: Right radial cath site: +2 pulses, dressing removed. No hematoma or oozing noted at site. Results 06/29/16 02:36 06/29/16 02:36 Lab Results 06/29/16 06/29/16 02:36 02:36 WBC 10.6 Hgb 13.0 Hct 39.4 Plt Count 267 Sodium 138 Potassium 4.0 Chloride 107 Carbon Dioxide 22 BUN 14 Creatinine 1.11 Glucose 167 H Calcium 8.4 L Active Medications Acetaminophen (Tylenol) 500 mg PO Q6HR PRN PRN Reason: Mild Pain Stop: 12/28/16 16:20 Aspirin (Aspirin) 81 mg PO DAILY [facility] Stop: 12/29/16 09:01 Carvedilol (Coreg) 3.125 mg PO BIDWM NINA PRN Reason: Protocol Stop: 12/29/16 08:01 Dextrose/Water (Dextrose 50% (Syg)) 25 ml IVP AD PRN PRN Reason: Hypoglycemia Stop: 12/28/16 17:11 Diphenhydramine HCl (Benadryl) 25 mg PO HS PRN PRN Reason: Insomnia Stop: 12/28/16 17:07 Glucagon (Glucagen) 1 mg IM ONCE PRN PRN Reason: Hypoglycemia Stop: 12/28/16 17:11 Glucose (Gluctose) 15 gm PO ONCE PRN PRN Reason: Hypoglycemia Stop: 12/28/16 17:11 Glucose (Gluctose) 30 gm PO ONCE PRN PRN Reason: Hypoglycemia Stop: 12/28/16 17:11 Heparin Sodium (Porcine) (Heparin) 5,000 unit SQ Q12HCO NINA Stop: 12/29/16 07:31 Dextrose (Dextrose 5%) 1,000 mls @ 100 mls/hr IVC .Q10H PRN PRN Reason: HYPOGLYCEMIA Stop: 12/28/16 17:11 Insulin Human Lispro (Humalog) 0 units SQ HS NINA PRN Reason: Protocol Stop: 12/28/16 21:01 Last Admin: 06/28/16 21:01 Dose: Not Given Insulin Human Lispro (Humalog) 0 units SQ TIDAC NINA PRN Reason: Protocol Stop: 12/29/16 07:31 Lisinopril (Zestril) 2.5 mg PO DAILY NINA PRN Reason: Protocol Stop: 12/29/16 09:01 Morphine Sulfate (Morphine Sulfate) 4 mg IVP Q3H PRN PRN Reason: Severe Pain (7-10) Stop: 12/28/16 16:20 Last Admin: 06/28/16 19:23 Dose: 4 mg Non-Formulary Medication (Glipizide [Glipizide]) 10 mg PO DAILY [facility] Stop: 12/29/16 09:01 Non-Formulary Medication (Magnesium Oxide [Magnesium]) 400 mg PO DAILY [facility] Stop: 12/29/16 09:01 Non-Formulary Medication (Multivitamin [Multi-Day Vitamins]) 1 tab PO DAILY [facility] Stop: 12/29/16 09:01 Non-Formulary Medication ([place]-3/Dha/Epa/Fish Oil [Fish Oil 1,000 Mg Softgel]) 1,000 mg PO DAILY [facility] Stop: 12/29/16 09:01 Ondansetron HCl (Zofran) 4 mg IVP Q8HR PRN PRN Reason: Nausea And Vomiting Stop: 12/28/16 16:20 Rosuvastatin Calcium (Crestor) 40 mg PO HS NINA Stop: 12/28/16 21:01 Last Admin: 06/28/16 20:57 Dose: 40 mg Ticagrelor (Brilinta) 90 mg PO BID NINA Stop: 12/28/16 21:01 Last Admin: 06/28/16 20:57 Dose: 90 mg Vitamin D (Vitamin D) 5,000 unit PO DAILY [facility] Stop: 12/29/16 09:01 - Imaging and Cardiology Echo: pending Cardiac cath: report reviewed Other Results: 12 hour tele: avg HR=61 SR. 6 beat NSVT, frequent PVCs. No pause. - EKG Interpretation EKG results cardiology: personally reviewed Consult Discharge Plan - Plan Referrals: Joseluis Robbins, MORGAN [Primary Care Provider] -
[2016-06-29] MEDS ORDERED: Nitroglycerin 0.4 MG TAB.SUBL SL PRN ×2 (08:15→09:50)
[2016-06-29] MEDS: *HR* Ticagrelor 90 MG TABLET PO SCH ×2 (08:17→20:13)
[2016-06-29] MEDS ORDERED: Magnesium Oxide 400 MG TABLET PO SCH (09:00)
[2016-06-29] MEDS ORDERED: Cholecalciferol (D-3) 1,000 UNIT TABLET PO SCH (09:00)
[2016-06-29] MEDS ORDERED: Multivit/Ca/Min/Fe/FA 1 TAB TABLET PO SCH (09:00)
[2016-06-29] MEDS ORDERED: *HR* GlipiZIDE XL (24 HR) 10 MG TABLET PO SCH (09:00)
[2016-06-29] MEDS ORDERED: Aspirin 81 MG TAB.CHEW PO SCH (09:00)
[2016-06-29] MEDS ORDERED: D5% in Water 1,000 ML IVC PRN (09:50)
[2016-06-29] MEDS ORDERED: Ondansetron 4 MG/2 ML VIAL IVP PRN (09:50)
[2016-06-29] MEDS ORDERED: *HR* Dextrose 50 % in Water (Syg) 50 ML SYRINGE IVP PRN (09:50)
[2016-06-29] MEDS ORDERED: Dextrose Gel 15 GM PO PRN ×2 (09:50)
--- NOTE | 2016-06-29 10:01 | ECHO - Doppler Report ---
Echocardiogram Name: Enio Robertson Date of Study: 06/29/2016 Date: 1950 Ht: 69.0 in Medical Record#: [id number] Age: 66 Wt: 247.0 lb Gender: Male BSA: 2.26 Order #: [id number] Location: [facility] Room #: IC09 Reading Physician: Bacilio Adkins MD, [facility] User Experience Analyst: Reanna Martinez RDCS, RVT Ordering Physician: Bacilio Adkins MD, [facility] Primary Physician: Joseluis Robbins CNP Indications: Acute Coronary Syndrome Impressions: Mild pulmonary hypertension. Mild left ventricular diastolic dysfunction. No significant valvular dysfunction. LVEF 35%. Left Ventricular Wall Motion: Rest Echo Findings The mid anterior, basal anterior, mid inferior septal, basal inferior septal and basal anterior septal simon were hypokinetic. The apex, apical anterior, apical septal and mid anterior septal simon were akinetic. All other wall segments showed normal motion. Findings: Study Quality * Technically adequate exam. Right Ventricle * Normal right ventricular structure and function. Right Atrium * Normal right atrial size. Aortic Valve * Trileaflet aortic valve with normal function. Interatrial Septum * No evidence of PFO by color Doppler. Aorta * Normally sized aortic root. Pericardium * The pericardium appears normal. ECG Findings * Sinus rhythm with BBB. Tricuspid Valve * No tricuspid regurgitation. * Trace tricuspid regurgitation. * Estimated RVSP is 38 mmHg. * Mild pulmonary hypertension. * Estimated RA pressure is 5-8 mmHg. Pulmonic Valve * No pulmonic stenosis. * Mild pulmonic regurgitation. Mitral Valve * Normal mitral valve structure. * Mild mitral regurgitation. * No mitral stenosis. Left Ventricle * Mild left ventricular diastolic dysfunction. * LVEF 35%. IVC * The IVC is dilated. * > 50% respiratory change Left Atrium * Mildly dilated left atrium. History Hypertension Diabetes Hypercholesteremia Family History of CAD History of CAD/PTCA Measurements: BP: 128/ 82 2D Normal Values RVIDd: 3.10 cm <2.7 cm IVSd: .80 cm 0.6 - 1.0 cm LVIDd: 6.10 cm 3.7 - 5.6 cm LVPWd: .80 cm 0.6 - 1.1 cm LVIDs: 5.00 cm 1.5 - 3.6 cm AO: 2.50 cm < 4.0 cm LA: 4.00 cm 2.0 - 4.0cm %FS: 18.00 cm >25 % LA volume: 66 Mitral Valve Peak E:.60 m/sec Peak A:.42 m/sec E/A Ratio:1.4 Peak E' Lat Gareth:7.9 cm/s Peak E' Med Gareth:6.53 cm/s E/E' Lat Ratio:7.6 E/E' Med Ratio:9.2 Tricuspid Valve TV Regurg Peak Grad: 38.00mmHg TV Regurg Peak Gareth: 3.09m/sec Updated by Bacilio Adkins MD, [facility] on 06/29/2016 9:56:55 AM electronically signed on 06/29/2016 9:58:06 AM with status of Final Wall Motion [place]: 1=Normal, 2=Hypokinesis, 3=Akinesis, 4=Dyskinesis, 5=Aneurysmal, 6=Hyperkinetic, X=Not Visualized (Blank)=Missing
[2016-06-29] MEDS: Insulin LISPRO 300 UNITS/3 ML VIAL SQ SCH ×3 (12:17→20:10)
[2016-06-29] MEDS: *HR* Heparin 5,000 UNIT/ML VIAL SQ SCH (17:57)
[2016-06-29] MEDS: *HR* Morphine 2 MG/ML SYRINGE IVP PRN (20:20)
[2016-06-30 03:32] LABS: BUN/Creatinine Ratio 15 (6-26); Blood Urea Nitrogen 17 mg/dL (8-26); Calcium 8.4 mg/dL (8.6-10.8); Carbon Dioxide 26 mEq/L (19-29); Chloride 104 mEq/L (98-109); Glucose 117 mg/dL (70-99); Magnesium 1.9 mg/dL (1.6-2.6); Osmolality,Calculated 287 (280-300); Sodium 137 mEq/L (136-145); eGFR For African Americans > 60 (> 60); eGFR For Non-African Americans > 60 (> 60)
[2016-06-30] MEDS: *HR* Heparin 5,000 UNIT/ML VIAL SQ SCH ×2 (05:47→18:44)
[2016-06-30] MEDS: Insulin LISPRO 300 UNITS/3 ML VIAL SQ SCH ×4 (07:24→21:15)
[2016-06-30] MEDS: *HR* GlipiZIDE 5 MG TABLET PO SCH (07:24)
[2016-06-30] MEDS: Cholecalciferol (D-3) 1,000 UNIT TABLET PO SCH (07:25)
[2016-06-30] MEDS: Aspirin 81 MG TAB.CHEW PO SCH (07:25)
[2016-06-30] MEDS: Multivit/Ca/Min/Fe/FA 1 TAB TABLET PO SCH (07:26)
[2016-06-30] MEDS: (Omega-3/Dha/Epa/Fish Oil [Fish Oil 1,000 Mg Softgel]) PO SCH (07:28)
[2016-06-30] MEDS: Magnesium Oxide 400 MG TABLET PO SCH (08:21)
[2016-06-30] MEDS: *HR* Ticagrelor 90 MG TABLET PO SCH ×2 (08:22→19:58)
--- NOTE | 2016-06-30 09:21 | Electrocardiograph Report ---
[address] [address] Test Date: 2016-06-28 Pat Name: Enio Robertson Department: 105 Room: 2N04 Gender: M Windows Infrastructure Engineer: JESSIE : 1950 Requested By: Sylvester Whitehead Order Number: [id number] Reading MD: Bacilio Adkins MD Measurements Intervals [place] Rate: 106 P: 70 TN: 124 QRS: -56 QRSD: 132 T: 32 QT: 342 QTc: 404 Interpretive Statements SINUS TACHYCARDIA WITH OCCASIONAL VENTRICULAR PREMATURE COMPLEXES RIGHT BUNDLE BRANCH BLOCK LEFT ANTERIOR FASCICULAR BLOCK Electronically Signed On 06-30-2016 9:19:52 EDT by Bacilio Adkins MD
--- NOTE | 2016-06-30 09:22 | Cardiology Progress Note ---
Date of Encounter: 06/30/16 Time of Encounter: 09:00 Assessment and Plan (1) STEMI (ST elevation myocardial infarction) Current Visit: Yes Status: Acute Admitted on 06/28/16 with anterior STEMI, troponin 0.13 [facility] 06/28/16: severe 1v CAD s/p successful PTCA/DANIEL to mLAD 99% stenosis; otherwise mild-moderate non-obstructive CAD--50% pLAD; 50% ostial RCA, 40% mRCA ; EF 30%. TTE 06/29/16: LVEF 35%, mild LVDD, mild PH, no significant valvular dysfunction. Mid anterior, basal anterior, mid inferior septal, basal inferior septal & basal anterior septal simon were hypokinetic; the apex, apical anterior, apical septal simon were akinetic. He is chest pain free and euvolemic upon exam. Mild pre-tibial edema noted-- patient states this is chronic. Education provided on importance of uninterrupted DAPT (asa + brilinta) therapy. Will optimize coreg dose. Continue ACEi, statin. Encouraged ambulation, patient may shower today. Discussed with Dr. Adkins; given acute GA with new reduction in LVEF, 35%, recommend LifeVest prior to discharge--will arrange today. Post PCI restrictions/instructions discussed. Vitals, telemetry stable. Continue Heparin SC 5000 mg BID for VTE prophylaxis. Anticipate discharge tomorrow if vitals, telemetry stable. Qualifiers: Involved coronary artery: LAD coronary artery Qualified Code(s): I21.02 - ST elevation (STEMI) myocardial infarction involving left anterior descending coronary artery (2) Ischemic cardiomyopathy Current Visit: Yes Status: Acute Plan as above. s/p revascularization; will continue to optimize betablocker and ACEi as inpatient. Discharge with LifeVest. Re-evaluate TTE in 1 month to assess EF. (3) Essential hypertension Current Visit: Yes Status: Chronic Continue betablocker and ACEi. Controlled, adjust as necessary. (4) DMII (diabetes mellitus, type 2) Current Visit: Yes Status: Chronic Hold metformin x48 hours after [facility]. Sliding scale insulin ordered. Resumed home Glipizide. Continue to monitor. Qualifiers: Diabetes mellitus complication status: with unspecified complications Diabetes mellitus ferry terminal supervisor insulin use: without ferry terminal supervisor use Qualified Code( s): E11.8 - Type 2 diabetes mellitus with unspecified complications Discussion w patient/family: The assessment and plan as outlined above was discussed with the patient and/or family members who expressed understanding and agreement. All questions were answered. Thank you for involving us in the care of your patient. Please call with any questions. The patient will be discussed and reviewed with Dr. Adkins; changes to be made accordingly. Subjective Principal diagnosis: anterior STEMI Interval history: Seen and examined. Mr. Robertson admitted 06/28/16 evening with anterior STEMI. Denies recurrent chest pain/pressure. Denies any other complaints overnight. States he is tired and fatigued this AM. Right radial cath site stable. Plan discussed with patien. Objective Vital Signs, Last 4 Hours Temp Pulse Resp BP Pulse Ox 06/30/16 07:20 99.3 F 90 17 119/72 98 General: Conversant, No Apparent Distress HEENT: Atraumatic, Normocephaly Cardiac: Reg Rate and Rhythm, Normal S1 and S2 Lungs: Normal Breath Sounds Neuro: Alert and responsive Abdomen: Soft Skin: No rashes noted on visualized skin Musculoskeletal: No Chest Wall Tenderness Extremities: Normal Pulses, Other (mild pre-tibial LE edema. ) Other: Right radial cath: +2 pulses, no hematoma or ecchymosis noted at site. Results 06/29/16 02:36 06/30/16 02:49 Lab Results 06/30/16 02:49 Sodium 137 Potassium 4.0 Chloride 104 Carbon Dioxide 26 BUN 17 Creatinine 1.12 Glucose 117 H Calcium 8.4 L Magnesium 1.9 Active Medications Acetaminophen (Tylenol) 500 mg PO Q6HR PRN PRN Reason: Mild Pain Stop: 12/28/16 16:20 Aspirin (Aspirin) 81 mg PO DAILY NINA Stop: 12/29/16 09:01 Last Admin: 06/30/16 07:25 Dose: 81 mg Carvedilol (Coreg) 3.125 mg PO BIDWM NINA PRN Reason: Protocol Stop: 12/29/16 08:01 Last Admin: 06/30/16 07:26 Dose: 3.125 mg Diphenhydramine HCl (Benadryl) 25 mg PO HS PRN PRN Reason: Insomnia Stop: 12/28/16 17:07 Glipizide (Glucotrol) 10 mg PO DAILY NINA Stop: 12/29/16 09:01 Last Admin: 06/30/16 07:24 Dose: 10 mg Heparin Sodium (Porcine) (Heparin) 5,000 unit SQ Q12HCO [facility] Stop: 12/29/16 07:31 Last Admin: 06/30/16 05:47 Dose: 5,000 unit Insulin Human Lispro (Humalog) 0 units SQ HS NINA PRN Reason: Protocol Stop: 12/28/16 21:01 Last Admin: 06/29/16 20:10 Dose: Not Given Insulin Human Lispro (Humalog) 0 units SQ TIDAC [facility] PRN Reason: Protocol Stop: 12/29/16 07:31 Last Admin: 06/30/16 07:24 Dose: Not Given Lisinopril (Zestril) 2.5 mg PO DAILY [facility] PRN Reason: Protocol Stop: 12/29/16 09:01 Last Admin: 06/30/16 07:25 Dose: 2.5 mg Magnesium Oxide (Mag-Ox) 400 mg PO DAILY [facility] Stop: 12/29/16 09:01 Last Admin: 06/30/16 08:21 Dose: 400 mg Morphine Sulfate (Morphine Sulfate) 4 mg IVP Q3H PRN PRN Reason: Severe Pain (7-10) Stop: 12/28/16 16:20 Last Admin: 06/29/16 20:20 Dose: 4 mg Multivitamins/Calcium (Thera M Plus) 1 tab PO DAILY [facility] Stop: 12/29/16 09:01 Last Admin: 06/30/16 07:26 Dose: 1 tab Nitroglycerin (Nitroglycerin) 0.4 mg SL Q5MIN PRN PRN Reason: Chest Pain Stop: 12/29/16 08:16 Ondansetron HCl (Zofran) 4 mg IVP Q8HR PRN PRN Reason: Nausea And Vomiting Stop: 12/28/16 16:20 Last Admin: 06/29/16 17:52 Dose: 4 mg Pharmacy Profile Note (Patient Taking Own Medication) 0 each PO DAILY [facility] Stop: 12/29/16 09:01 Last Admin: 06/30/16 07:28 Dose: Not Given Rosuvastatin Calcium (Crestor) 40 mg PO HS [facility] Stop: 12/28/16 21:01 Last Admin: 06/29/16 20:13 Dose: 40 mg Ticagrelor (Brilinta) 90 mg PO BID [facility] Stop: 12/28/16 21:01 Last Admin: 06/30/16 08:22 Dose: 90 mg Vitamin D (Vitamin D) 1,000 unit PO DAILY [facility] Stop: 12/29/16 09:01 Last Admin: 06/30/16 07:25 Dose: 1,000 unit - Imaging and Cardiology Echo: report reviewed Cardiac cath: report reviewed Other Results: 12 hour tele: avg HR= 82 SR. No pause, NSVT seen. - EKG Interpretation EKG results cardiology: personally reviewed Consult Discharge Plan - Plan Referrals: Joseluis Robbins, [employer] [Primary Care Provider] -
--- NOTE | 2016-06-30 20:38 | Electrocardiograph Report ---
[address] [place], [place] [address] Test Date: 2016-06-28 Pat Name: Enio Robertson Department: 109 Room: 2N04 Gender: M Worship Pastor: : 1950 Requested By: Bacilio Adkins Order Number: [id number] Reading MD: Bacilio Adkins MD Measurements Intervals [place] Rate: 72 P: 69 [place]: 158 QRS: -42 QRSD: 125 T: 24 QT: 347 QTc: 371 Interpretive Statements SINUS RHYTHM WITH SINUS ARRHYTHMIA RIGHT BUNDLE BRANCH BLOCK INFERIOR MYOCARDIAL INFARCTION, PROBABLY OLD Electronically Signed On 06-30-2016 20:36:59 EDT by Bacilio Adkins MD
[2016-07-01] MEDS: *HR* Morphine 2 MG/ML SYRINGE IVP PRN (03:56)
[2016-07-01] MEDS: Multivit/Ca/Min/Fe/FA 1 TAB TABLET PO SCH (07:46)
[2016-07-01] MEDS: Cholecalciferol (D-3) 1,000 UNIT TABLET PO SCH (07:46)
[2016-07-01] MEDS: Magnesium Oxide 400 MG TABLET PO SCH (07:46)
[2016-07-01] MEDS: Aspirin 81 MG TAB.CHEW PO SCH (07:46)
[2016-07-01] MEDS: *HR* GlipiZIDE 5 MG TABLET PO SCH (07:46)
[2016-07-01] MEDS: *HR* Heparin 5,000 UNIT/ML VIAL SQ SCH ×2 (07:47→19:41)
[2016-07-01] MEDS: Insulin LISPRO 300 UNITS/3 ML VIAL SQ SCH ×4 (07:48→21:04)
[2016-07-01] MEDS: (Omega-3/Dha/Epa/Fish Oil [Fish Oil 1,000 Mg Softgel]) PO SCH (07:48)
[2016-07-01] MEDS: *HR* Ticagrelor 90 MG TABLET PO SCH ×2 (09:02→21:01)
[2016-07-01 09:13] LABS: Basophils # 0.1 K/mcL (0.0-0.2); Basophils % 0.5 %; Eosinophils % 0.3 %; Hematocrit 36.2 % (37.5-50.1); Hemoglobin 12.1 g/dL (12.9-16.9); Immature Granulocytes % 0.5 % (0-4); Lymphocytes # 1.4 K/mcL (0.6-4.6); Lymphocytes % 13.2 %; Mean Corpuscular HGB Conc 33.4 g/dL (31.6-35.5); Mean Corpuscular Hemoglobin 31.1 pg (28.0-33.3); Mean Corpuscular Volume 93.1 fL (83.0-100.0); Mean Platelet Volume 10.5 fL (9.4-12.4); Monocytes # 1.2 K/mcL (0.0-1.3); Monocytes % 11.6 %; Neutrophils # 7.9 K/mcL (1.6-8.9); Platelet Count 195 K/mcL (140-400); Red Blood Count 3.89 M/mcL (4.19-5.50); Red Cell Distribution Width 14.3 % (11.5-14.5); Segmented Neutrophils % 73.9 %
[2016-07-01 09:24] LABS: BUN/Creatinine Ratio 13 (6-26); Blood Urea Nitrogen 15 mg/dL (8-26); Calcium 8.6 mg/dL (8.6-10.8); Carbon Dioxide 23 mEq/L (19-29); Chloride 106 mEq/L (98-109); Glucose 143 mg/dL (70-99); Osmolality,Calculated 285 (280-300); Potassium 3.8 mEq/L (3.5-4.5); Sodium 136 mEq/L (136-145); eGFR For African Americans > 60 (> 60); eGFR For Non-African Americans > 60 (> 60)
--- NOTE | 2016-07-01 10:05 | Cardiology Progress Note ---
Date of Encounter: 07/01/16 Time of Encounter: 09:00 Assessment and Plan (1) STEMI (ST elevation myocardial infarction) Current Visit: Yes Status: Acute Admitted on 06/28/16 with anterior STEMI, troponin 0.13 [facility] 06/28/16: severe 1v CAD s/p successful PTCA/DANIEL to mLAD 99% stenosis; otherwise mild-moderate non-obstructive CAD--50% pLAD; 50% ostial RCA, 40% mRCA ; EF 30%. TTE 06/29/16: LVEF 35%, mild LVDD, mild PH, no significant valvular dysfunction. Mid anterior, basal anterior, mid inferior septal, basal inferior septal & basal anterior septal simon were hypokinetic; the apex, apical anterior, apical septal simon were akinetic. He is chest pain free and euvolemic upon exam. Mild pre-tibial edema noted-- patient states this is chronic. Education provided on importance of uninterrupted DAPT (asa + brilinta) therapy. Will optimize coreg dose. Continue ACEi, statin. Encouraged ambulation, patient may shower today. Discussed with Dr. Adkins; given acute MN with new reduction in LVEF, 35%, recommend LifeVest prior to discharge--will arrange today. Post PCI restrictions/instructions discussed. Vitals, telemetry stable. Continue Heparin SC 5000 mg BID for VTE prophylaxis. Qualifiers: Involved coronary artery: LAD coronary artery Qualified Code(s): I21.02 - ST elevation (STEMI) myocardial infarction involving left anterior descending coronary artery (2) Ischemic cardiomyopathy Current Visit: Yes Status: Acute Reports dyspnea/fatigue--this is likely secondary to AMI and acute CHF. Reports chills overnight, Tmax 100.4--will obtain CBC, BMP, and CXR. Will further discuss and reviewed with Dr. Adkins. Plan as above. s/p revascularization; will continue to optimize betablocker and ACEi as inpatient. Discharge with LifeVest. Re-evaluate TTE in 1 month to assess EF. (3) Essential hypertension Current Visit: Yes Status: Chronic Titrate medications. The assessment and plan as outlined above was discussed with the patient and/or family members who expressed understanding and agreement. All questions were answered. (4) DMII (diabetes mellitus, type 2) Current Visit: Yes Status: Chronic SSI QID FSThe assessment and plan as outlined above was discussed with the patient and/or family members who expressed understanding and agreement. All questions were answered. Qualifiers: Diabetes mellitus complication status: with unspecified complications Diabetes mellitus fdc insulin use: unspecified terminal system operator insulin use status Qualified Code(s): E11.8 - Type 2 diabetes mellitus with unspecified complications Discussion w patient/family: The assessment and plan as outlined above was discussed with the patient and/or family members who expressed understanding and agreement. All questions were answered. Thank you for involving us in the care of your patient. Please call with any questions. The patient will be discussed and reviewed with Dr. Adkins; changes to be made accordingly. Subjective Principal diagnosis: anterior STEMI Interval history: Seen and examined. Mr. Robertson admitted 06/28/16 evening with anterior STEMI. Reports did not sleep well--chills overnight. Tmax 100.4 overnight. Denies chest pain or discomfort. Reports fatigue and shortness of breath. No issues with right radial cath site. Objective Vital Signs, Last 4 Hours Temp Pulse Resp BP Pulse Ox 07/01/16 09:46 89 07/01/16 07:45 97 07/01/16 07:38 100 F H 100 16 131/73 97 General: Conversant, No Apparent Distress HEENT: Atraumatic, Normocephaly, Mucus Membranes Moist Cardiac: Reg Rate and Rhythm, Normal S1 and S2 Lungs: Normal Breath Sounds Neuro: Alert and responsive Abdomen: Soft Skin: No rashes noted on visualized skin Musculoskeletal: No Chest Wall Tenderness Extremities: No Edema, Normal Pulses Results 07/01/16 08:46 07/01/16 08:46 Lab Results 07/01/16 07/01/16 08:46 08:46 WBC 10.6 Hgb 12.1 L Hct 36.2 L Plt Count 195 Sodium 136 Potassium 3.8 Chloride 106 Carbon Dioxide 23 BUN 15 Creatinine 1.17 Glucose 143 H Calcium 8.6 Active Medications Acetaminophen (Tylenol) 500 mg PO Q6HR PRN PRN Reason: Mild Pain Stop: 12/28/16 16:20 Last Admin: 06/30/16 21:47 Dose: 500 mg Aspirin (Aspirin) 81 mg PO DAILY NINA Stop: 12/29/16 09:01 Last Admin: 07/01/16 07:46 Dose: 81 mg Carvedilol (Coreg) 6.25 mg PO BIDWM [facility]INA PRN Reason: Protocol Stop: 12/30/16 17:01 Last Admin: 07/01/16 07:46 Dose: 6.25 mg Dextrose/Water (Dextrose 50% (Syg)) 25 ml IVP AD PRN PRN Reason: Hypoglycemia Stop: 12/28/16 17:11 Diphenhydramine HCl (Benadryl) 25 mg PO HS PRN PRN Reason: Insomnia Stop: 12/28/16 17:07 Last Admin: 06/30/16 21:47 Dose: 25 mg Glipizide (Glucotrol) 10 mg PO DAILY [facility] Stop: 12/29/16 09:01 Last Admin: 07/01/16 07:46 Dose: 10 mg Glucagon (Glucagen) 1 mg IM ONCE PRN PRN Reason: Hypoglycemia Stop: 12/28/16 17:11 Glucose (Gluctose) 15 gm PO ONCE PRN PRN Reason: Hypoglycemia Stop: 12/28/16 17:11 Glucose (Gluctose) 30 gm PO ONCE PRN PRN Reason: Hypoglycemia Stop: 12/28/16 17:11 Heparin Sodium (Porcine) (Heparin) 5,000 unit SQ Q12HCO [facility] Stop: 12/29/16 07:31 Last Admin: 07/01/16 07:47 Dose: 5,000 unit Dextrose (Dextrose 5%) 1,000 mls @ 100 mls/hr IVC .Q10H PRN PRN Reason: HYPOGLYCEMIA Stop: 12/28/16 17:11 Insulin Human Lispro (Humalog) 0 units SQ HS NINA PRN Reason: Protocol Stop: 12/28/16 21:01 Last Admin: 06/30/16 21:15 Dose: Not Given Insulin Human Lispro (Humalog) 0 units SQ TIDAC [facility] PRN Reason: Protocol Stop: 12/29/16 07:31 Last Admin: 07/01/16 07:48 Dose: 2 units Lisinopril (Zestril) 2.5 mg PO DAILY [facility]INA PRN Reason: Protocol Stop: 12/29/16 09:01 Last Admin: 07/01/16 07:47 Dose: 2.5 mg Magnesium Oxide (Mag-Ox) 400 mg PO DAILY [facility] Stop: 12/29/16 09:01 Last Admin: 07/01/16 07:46 Dose: 400 mg Morphine Sulfate (Morphine Sulfate) 4 mg IVP Q3H PRN PRN Reason: Severe Pain (7-10) Stop: 12/28/16 16:20 Last Admin: 07/01/16 03:56 Dose: 4 mg Multivitamins/Calcium (Thera M Plus) 1 tab PO DAILY [facility] Stop: 12/29/16 09:01 Last Admin: 07/01/16 07:46 Dose: 1 tab Nitroglycerin (Nitroglycerin) 0.4 mg SL Q5MIN PRN PRN Reason: Chest Pain Stop: 12/29/16 08:16 Ondansetron HCl (Zofran) 4 mg IVP Q8HR PRN PRN Reason: Nausea And Vomiting Stop: 12/28/16 16:20 Last Admin: 06/29/16 17:52 Dose: 4 mg Pharmacy Profile Note (Patient Taking Own Medication) 0 each PO DAILY [facility] Stop: 12/29/16 09:01 Last Admin: 07/01/16 07:48 Dose: Not Given Rosuvastatin Calcium (Crestor) 40 mg PO HS [facility] Stop: 12/28/16 21:01 Last Admin: 06/30/16 19:58 Dose: 40 mg Ticagrelor (Brilinta) 90 mg PO BID [facility] Stop: 12/28/16 21:01 Last Admin: 07/01/16 09:02 Dose: 90 mg Vitamin D (Vitamin D) 1,000 unit PO DAILY [facility] Stop: 12/29/16 09:01 Last Admin: 07/01/16 07:46 Dose: 1,000 unit - Imaging and Cardiology Chest Xray: pending Echo: report reviewed Cardiac cath: report reviewed Other Results: 12 hour tele: avg HR=91 SR. Consult Discharge Plan - Plan Referrals: Joseluis Robbins, PR[employer] FINISHER [Primary Care Provider] -
[2016-07-01] MEDS ORDERED: Ondansetron 4 MG/2 ML VIAL IVP PRN (15:55)
[2016-07-02] MEDS: *HR* Heparin 5,000 UNIT/ML VIAL SQ SCH (06:17)
[2016-07-02] MEDS: Insulin LISPRO 300 UNITS/3 ML VIAL SQ SCH ×2 (07:53→12:34)
[2016-07-02] MEDS: Multivit/Ca/Min/Fe/FA 1 TAB TABLET PO SCH (08:57)
[2016-07-02] MEDS: *HR* Ticagrelor 90 MG TABLET PO SCH (08:57)
[2016-07-02] MEDS: *HR* GlipiZIDE 5 MG TABLET PO SCH (08:58)
[2016-07-02] MEDS: (Omega-3/Dha/Epa/Fish Oil [Fish Oil 1,000 Mg Softgel]) PO SCH (08:58)
[2016-07-02] MEDS: Magnesium Oxide 400 MG TABLET PO SCH (08:58)
[2016-07-02] MEDS: Cholecalciferol (D-3) 1,000 UNIT TABLET PO SCH (08:58)
[2016-07-02] MEDS: Aspirin 81 MG TAB.CHEW PO SCH (08:58)
--- NOTE | 2016-07-02 10:04 | Discharge Summary ---
Date of Encounter: 07/02/16 Time of Encounter: 09:30 - Discharge Diagnosis (1) STEMI (ST elevation myocardial infarction) Priority: Primary Status: Acute Comments: s/p PTCA/DANIEL to mLAD. Qualifiers: Involved coronary artery: LAD coronary artery Qualified Code(s): I21.02 - ST elevation (STEMI) myocardial infarction involving left anterior descending coronary artery (2) Ischemic cardiomyopathy Priority: Primary Status: Acute (3) Essential hypertension Priority: Secondary Status: Chronic (4) DMII (diabetes mellitus, type 2) Priority: Secondary Status: Chronic Qualifiers: Diabetes mellitus complication status: with unspecified complications Diabetes mellitus residential insulin use: unspecified regional intermodal truck driver insulin use status Qualified Code(s): E11.8 - Type 2 diabetes mellitus with unspecified complications - Discharge Medications Prescriptions: Nitroglycerin 0.4 mg SL Q5MIN PRN #30 tab.subl PRN Reason: Chest Pain Carvedilol [Coreg] 6.25 mg PO BIDWM #60 tablet Docusate [Colace] 100 mg PO DAILY PRN #30 capsule PRN Reason: Constipation Lisinopril [Zestril] 2.5 mg PO DAILY #30 tablet Rosuvastatin [Crestor] 40 mg PO HS #30 tablet Ticagrelor [Brilinta] 90 mg PO BID #60 tablet Home Medications: Ascorbic Acid [Vitamin C] 1,000 mg PO DAILY 09/19/15 [History] Aspirin Enteric Coated [Aspirin EC] 81 mg PO DAILY 09/19/15 [History] Cholecalciferol (D-3) [Vitamin D] 5,000 unit PO DAILY 09/19/15 [History] GlipiZIDE [Glipizide] 10 mg PO DAILY 09/19/15 [History] Magnesium Oxide [Magnesium] 400 mg PO DAILY 09/19/15 [History] Metformin HCl [Glucophage] 1,000 mg PO BID 09/19/15 [History] Multivitamin [Multi-Day Vitamins] 1 tab PO DAILY 09/19/15 [History] [place]-3/Dha/Epa/Fish Oil [Fish Oil 1,000 mg Softgel] 1,000 mg PO DAILY 09/19/15 [History] Carvedilol [Coreg] 6.25 mg PO BIDWM #60 tablet 07/02/16 [Rx] Docusate [Colace] 100 mg PO DAILY PRN #30 capsule 07/02/16 [Rx] Lisinopril [Zestril] 2.5 mg PO DAILY #30 tablet 07/02/16 [Rx] Nitroglycerin 0.4 mg SL Q5MIN PRN #30 tab.subl 07/02/16 [Rx] Rosuvastatin [Crestor] 40 mg PO HS #30 tablet 07/02/16 [Rx] Ticagrelor [Brilinta] 90 mg PO BID #60 tablet 07/02/16 [Rx] Allergies/Adverse Reactions: Allergies ibuprofen Adverse Reaction (Verified 09/19/15 12:24) See Comments skin crawls Procedures/tests Complete & Pending: Procedures Performed prior 72 hours Category Date Time Status EV echocardiogram Routine Y 06/29/16 16:19 Completed Date of admission: 06/28/16 16:19 Primary care physician: Joseluis Robbins CNP Discharging clinician: Hilda Thrasher Anticipated date of discharge: 07/02/16 - Patient Status Disposition: Home, Self-Care Condition: Good Functional capacity at discharge: independent ambulation Overall status at discharge: patient is progressing back to baseline - Discharge Instructions Instructions: Lisinopril (By mouth), Laxative, Stool Softeners (By mouth), Nitroglycerin, Rapid Release (By mouth), Carvedilol (By mouth), Rosuvastatin ( By mouth), Ticagrelor (By mouth), Myocardial Infarction (DC), Left Heart Catheterization (DC), Heart Healthy Diet (DC), Diabetes Mellitus Type 2 in Adults (DC), Chronic Hypertension (DC), Cardiac Rehabilitation (DC) Follow Up With: Joseluis Robbins CNP [Primary Care Provider] - 07/08/16 2:15 pm Additional Instructions: RISK FACTORS: STOP SMOKING: If you smoke, STOP. Smoking or tobacco use significantly increases your risk of heart disease because nicotine causes the arteries to narrow or constrict. It also causes fats to stick to the artery. Your chances of having a heart attack are greatly increased if you continue to smoke. For more information, call the education line for smoking cessation 1-019-[id number] EAT A LOW FAT/CHOLESTEROL/SODIUM DIET: This diet may help reduce your chances of having a heart attack. LIFTING: With affected extremity: Avoid bending, pushing off and lifting more than 2 pounds for 24 hours The following 48 hours, avoid lifting anything more than 5 pounds Avoid strenuous activity or repetitive motions ACTIVITY: You may walk or climb stairs as tolerated You can resume sexual activity as tolerated In general, you are encouraged to engage in a minimum of 30 minutes or more of moderate intensity physical activity, such as brisk walking, daily or at least 3 -4 times weekly BATHING Do not submerge the site into water (bath tub, hot tub, swimming pool, dishes) for 1 week. This can be a source for infection into the blood stream. You may shower after 24 hours SITE CARE: After 24 hours, you may remove the dressing and leave the site open to air. Keep the site clean and dry. Clean gently and pat dry. You can expect bruising and tenderness that gradually resolve within a week or two. Return to work as instructed per your physician Resume driving as instructed per physician Keep all scheduled follow up appointments Resume medications as instructed IMPORTANT: If prescribed a Platelet Aggregation Inhibitor such as, Plavix, Brilinta or Effient: Duration of therapy is minimum one year These medications are often used in combination with Aspirin in prevention of future heart attacks Never discontinue unless consult with your Forming Process Line Worker STROKE (CVA) Risk factors for a stroke are: Age, cigarette smoking, diabetes, excessive alcohol consumption, family history, high blood pressure, overweight, physical inactivity, prior stroke, heart attack, diagnosis of carotid artery stenosis or other artery disease. Warning signs: Sudden numbness or weakness of the face, arm or leg; especially on one side of the body, sudden confusion, trouble speaking or understanding, sudden trouble seeing in one or both eyes, sudden trouble walking, dizziness, loss of balance or coordination, sudden severe headache with no cause. Call 911 or go to the Emergency Room. CONGESTIVE HEART FAILURE: If you have been diagnosed with Congestive Heart Failure (CHF) and your symptoms return, make an appointment with your physician Weigh yourself daily. Notify your physician if you have a weight gain of two or more pounds in one day or five or more pounds in one week. If you experience any difficulty breathing, please call 911 BLEEDING: Although the risk of bleeding is minimal, it can happen. If you have any bleeding from the site, apply firm pressure above the puncture site for 10-15 minutes. If the bleeding does not stop, continue manual pressure and call 911 Contact [facility] ( ) if: You develop a fever greater than 101 degrees Fahrenheit Your site becomes reddened or has any drainage You have an increase in pain or burning at the site or if a large knot forms at the site. If you experience chest pain, shortness of breath, dizziness, or extreme tiredness, stop the activity and rest. Please notify [facility] office if you experience any of these symptoms and they are not relieved by rest please call 911! - Diet and Activity Activity: increase activity as tolerated (per Post PCI guidelines. ), return to work once cleared by your PCP/specialist, other (Do not drive until seen by Cardiology as follow-up. ) Diet: low fat, low cholesterol, low salt diet - Hospital Course Hospital course: Mr. Robertson is a 66 year old male who was admitted on 06/28/16 with anterior STEMI , troponin 0.13. [facility] 06/28/16: severe 1v CAD s/p successful PTCA/DANIEL to mLAD 99 % stenosis; otherwise mild-moderate non-obstructive CAD--50% pLAD; 50% ostial RCA, 40% mRCA; EF 30%. TTE 06/29/16: LVEF 35%, mild LVDD, mild PH, no significant valvular dysfunction. Mid anterior, basal anterior, mid inferior septal, basal inferior septal & basal anterior septal simon were hypokinetic; the apex, apical anterior, apical septal simon were akinetic. He stepped down to 2N on 06/29/16. He developed mild temp on 06/30/16--CXR, CBC, and BMP were normal. He has been afebrile the past 24 hours. He has been up and ambulating in room without symptoms. Vital signs stable. Given acute IN with reduced LVEF, life vest recommended. Rep from [employer] provided instructions on indication/use on LifeVest, he has been instructed to wear at all times. He is chest pain free and euvolemic upon exam. Post PCI discharge instructions and education provided including importance of uninterrupted DAPT (asa + brilinta) therapy. 30 day savings card provided; will receive 30 day free supply. Continue betablocker and statin. All questions and concerns were addressed prior to discharge. He will follow-up with [facility] in 5-7 days. The patient was discussed and reviewed with Dr. Adkins who agrees with plan as stated avoid. - Time Spent with Patient Total time spent providing and/or coordinating discharge services: Greater than 30 minutes Specific discharge activities: per post PCI discharge instructions. Please provide written instructions. Wear LifeVest at all times. Physical Examination Vital Signs, Last 4 Hours Temp Pulse Resp BP Pulse Ox 07/02/16 09:03 92 97 07/02/16 07:14 98.8 F 87 16 118/67 96 07/02/16 07:03 89 94 General: Conversant, No Apparent Distress HEENT: Atraumatic, Normocephaly, Mucus Membranes Moist Cardiac: Reg Rate and Rhythm, Normal S1 and S2 Lungs: Normal Breath Sounds Neuro: Alert and responsive Abdomen: Soft Skin: No rashes noted on visualized skin Musculoskeletal: No Chest Wall Tenderness Extremities: No Edema, Normal Pulses
[2016-07-02 11:52] VITALS: BP 128/90
== END 2016-07-02 15:25 | disposition home or self-care (01) | DRG 247 ==
LOC: ICNU 15:43 → EMEROO 15:43 → ICNU 16:10 → 2NNU 06-29 10:16
PROVIDERS: ADMIT Emergency Medicine; ATTEND Emergency Medicine